=== PATIENT | female | born 1990 | race American Indian/Alaskan Native ===

== ENCOUNTER 2016-09-14 09:02 | Emergency (ER) | payer SELFPAY ==
[2016-09-14 09:14] VITALS: BP 148/97
--- NOTE | 2016-09-14 09:35 | Emergency Department Report ---
Upper Extremity - HPI Chief Complaint: Extremity Injury, Upper Stated Complaint: LEFT ARM PAIN Upper Extremity: Left Shoulder, Left Arm Occurred When: 2 Days Mechanism: Fall Severity: moderate Symptoms: Yes Pain with Movement, Yes Limited Range of Movement, Yes Weakness, Yes Swelling, No Deformity, No Numbness, No Bruising/Ecchymosis, No Laceration or Abrasion Other History: Patient comes in the ER today with complaints of left shoulder pain following a fall 2 days ago. Patient states that she was somewhat intoxicated when she fell and doesn't fully remember the exact mechanism of injury when she fell. Patient states that most the pain is located in her left shoulder and believes that she fell to the left. Patient denies any other complaints. Patient denies any abrasions or bleeding from injury. She has not been taking anything [id number] for the pain. ED Review of Systems ROS: Stated complaint: LEFT ARM PAIN Other details as noted in HPI Constitutional: denies: chills, fever Eyes: denies: eye pain, eye discharge, vision change ENT: denies: ear pain, throat pain Respiratory: denies: cough, shortness of breath, wheezing Cardiovascular: denies: chest pain, palpitations Endocrine: no symptoms reported Gastrointestinal: denies: abdominal pain, nausea, diarrhea Genitourinary: denies: urgency, dysuria, discharge Musculoskeletal: joint swelling, arthralgia. denies: back pain Skin: denies: rash, lesions Neurological: denies: headache, weakness, paresthesias Psychiatric: denies: anxiety, depression Hematological/Lymphatic: denies: easy bleeding, easy bruising ED Past Medical Hx - Past Medical History Previous Medical History?: No - Surgical History Past Surgical History?: Yes Additional Surgical History: - Social History Smoking Status: Current Every Day Smoker Substance Use Type: Alcohol, Marijuana - Medications Home Medications: Home Medications Medication Instructions Recorded Confirmed Last Taken Type Vits #90/Iron Fum/FA 1 each PO QDAY 06/26/13 06/26/13 06/24/13 History [ Formula] Cyclobenzaprine [Flexeril] 10 mg PO BID #20 tablet 09/14/16 Unknown Rx Naproxen [Naprosyn TAB] 500 mg PO BID #20 tablet 09/14/16 Unknown Rx traMADol [Ultram] 50 mg PO Q4HR PRN #30 tablet 09/14/16 Unknown Rx Upper Extremity Exam - Exam General: Vital signs noted. No distress. Alert and acting appropriately. Head and Torso: No HEENT Abnormality, No Neck Tenderness, No Chest/Lungs Abnormality, No Abdominal Tenderness, No Back Tenderness Shoulder Exam: Yes Shoulder Tenderness (left shoulder tenderness noted to the anterior margins and greatest intensity to left proximal lateral humerus area of supraspinatus insertion.), No Clavicle Tenderness, No Normal Range of Motion in Shoulder (Limited range of motion secondary to pain. Limited abduction, flexion, extension, internal rotation, external rotation.), No Shoulder Deformity, No AC Joint Tenderness Arm Exam: Yes Arm/Humerus Tenderness (proximal humerus tenderness), No Arm Deformity Elbow: No Elbow Tenderness, No Normal Range of Motion in Elbow, No Elbow Deformity Forearm: No Forearm Tenderness, No Forearm Deformity, No Pain with Pronation, No Pain with Supination Wrist: Yes Normal ROM in Wrist, No Wrist Tenderness, No Wrist Deformity, No Snuffbox Tenderness, No Pain with Axial Thumb Compression Hand: Yes Normal ROM in Digit(s), No Hand Tenderness, No Hand Deformity, No Digit Tenderness, No Digit(s) Deformity, No Tendon Dysfunction CMS Exam: Yes Normal Distal Pulses, Yes Normal Capillary Refill, Yes Normal Distal Sensation, No Broken Skin ED Course Vital Signs 09/14/16 09:10 Temperature 99.2 F Pulse Rate 101 H Respiratory 18 Rate Blood Pressure 148/97 O2 Sat by Pulse 97 Oximetry ED Medical Decision Making - Radiology Data Radiology results: report reviewed, image reviewed No acute process noted on x-ray of left shoulder - Medical Decision Making Patient is nontoxic and hemodynamically stable. I discussed x-ray results with patient. Patient was placed in left arm sling and I will start patient on some anti-inflammatories, muscle relaxants, pain medications for symptomatic relief. We'll also refer patient to orthopedics for further evaluation. I'll limit patient's activities at work. Patient is in agreement with treatment plan and patient is stable for discharge. Critical care attestation.: If time is entered above; I have spent that time in minutes in the direct care of this critically ill patient, excluding procedure time. ED Disposition Clinical Impression: Left shoulder pain, Injury of left shoulder Disposition: DISCHARGED TO HOME OR SELFCARE Is pt being admited?: No Does the pt Need Aspirin: No Condition: Good Instructions: Rotator Cuff Injury (ED), Shoulder Sprain (ED) Prescriptions: Cyclobenzaprine [Flexeril] 10 mg PO BID #20 tablet Naproxen [Naprosyn TAB] 500 mg PO BID #20 tablet traMADol [Ultram] 50 mg PO Q4HR PRN #30 tablet PRN Reason: Pain Referrals: PRIMARY CAREMD [Primary Care Provider] - 3-5 Days LETICIA TOTH MD [Staff Physician] - 3-5 Days Forms: Work/School Release Form(ED) Time of Disposition: 10:39
--- NOTE | 2016-09-14 10:23 | XRay Report ---
LEFT SHOULDER RADIOGRAPHS INDICATION: Fall, injury, pain. COMPARISON: None similar. FINDINGS: Frontal and Y views of the left shoulder, 3 projections demonstrate normal humeral head contour, well positioned against the glenoid. Normal acromioclavicular joint. Preserved scapular contour. Normal visualized soft tissues, left ribs and lung. Slight thoracic curvature, possibly positional versus scoliosis. CONCLUSION: No acute left shoulder radiographic abnormality, as described. Thank you for the opportunity to participate in this patient's care.
== END 2016-09-14 10:46 | disposition home or self-care (01) ==
LOC: ED 09:02
DX: S49.92XA Unspecified injury of left shoulder and upper arm, initial encounter (principal); F17.200 Nicotine dependence, unspecified, uncomplicated; F12.10 Cannabis abuse, uncomplicated; X58.XXXA Exposure to other specified factors, initial encounter; Y93.89 Activity, other specified; Y99.8 Other external cause status; Y92.89 Other specified places as the place of occurrence of the external cause
CPT/HCPCS: 99283

== ENCOUNTER 2017-06-21 18:29 | Emergency (ER) | payer OTHER ==
[2017-06-21 18:39] VITALS: BP 125/77
[2017-06-21] MEDS ORDERED: TORADOL IM ONE (21:10)
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
== END 2017-06-21 21:35 | disposition home or self-care (01) ==
LOC: ED 18:29
DX: M54.9 Dorsalgia, unspecified (principal); M79.642 Pain in left hand; F17.200 Nicotine dependence, unspecified, uncomplicated
CPT/HCPCS: 96372; 99282; J1885